=== PATIENT | female | born 1985 | race Caucasian/White ===

== ENCOUNTER 2019-06-01 17:46 | Inpatient (IN) | payer OTHER, SELFPAY ==
[2019-06-01] VITALS (15 sets, daily range): BP systolic 104–135; BP diastolic 58–91; PULSE 68–86; TEMP 36.9
--- NOTE | 2019-06-01 18:00 | LDADM ---
This patient, Lucila Menchaca, was admitted to Labor/Delivery/Recovery 103 on 06/01/19 at 17:46. Plans for labor, pain management and were discussed with patient. Patient/family oriented to hospital policies and general routines including ID bracelet, bed and alarms, visiting hours, pain management, procedures, bathroom and other care routines, personal items, smoking policy, room service/diet and guest tray routines, security routines, and visiting hours. Patient/Family are encouraged to report perceived risks to care and to ask questions if they do not understand what they are told or what they should do. See OBIX for further documentation.
--- NOTE | 2019-06-01 18:17 | WPDANESEPP ---
Anes - Eval Pre Procedure Procedure: Labor epidural Date/Time: 06/01/19 18:17 Surgeon: Giuliano Preop Diagnosis: Abdominal pain with contractions Pre Op Diagnosis: IOL Patient Data Age: 33 Gender: F Height: Weight: Allergies Allergy/AdvReac Type Severity Reaction Status Date / Time Penicillins Allergy Unknown Verified 04/01/19 13:55 Sulfa (Sulfonamide Allergy Unknown Verified 04/01/19 13:56 Antibiotics) Home Medications Medication Instructions Recorded Confirmed Type PNV cmb#95-ferrous fumarate-FA 1 tablet PO DAILY 04/01/19 04/01/19 History [] aspirin [Aspirin Low Dose] 81 mg PO DAILY 04/01/19 04/01/19 History ferrous sulfate 325 mg PO DAILY 04/01/19 04/01/19 History Patient hx anesthesia problems: none Family hx anesthesia problems: none PMFSH Past Medical History Medical History (Updated 06/01/19 @ 18:19 by Jayden Richmond CRNA) Depression Overweight (BMI 25.0-29.9) Family History Family History Other Unknown family medical history Social History Social History Substance use: never Gender identity (if verbalized by the patient): Female Spiritual care concerns: No Exam Day of Procedure 06/01/19 18:17
[2019-06-01] MEDS: LACTATED RINGERS 1,000 ML 125 ML IV CONT (18:44)
[2019-06-01] MEDS: ceFAZolin 2 GM/D5W 50 ML 2 GM/50 ML BAG IVPB (18:44)
[2019-06-01 18:50] LABS: Basophils Percent Auto 0.3 % (0.2-1.2); Eosinophils Absolute Auto 0.3 K/mm3 (0-0.3); Hematocrit 35.9 % (37.0-47.0); Hemoglobin 11.3 g/dL (12.0-15.0); Immature Granulocyte Absolute 0.21 K/mm3 (0.00-0.031); Immature Granulocyte Percent A 1.6 % (0-0.5); Immature Platelet Fraction Pct 17.2 % (0.9-11.2); Lymphocytes Absolute Auto 1.84 K/mm3 (0.9-3.2); Lymphocytes Percent Auto 14.4 % (18.3-44.2); Mean Corpuscular HGB Conc 31.5 g/dl (32-36); Mean Corpuscular Hemoglobin 25.6 pg (26-34); Mean Corpuscular Volume 81.4 fl (80-100); Mean Platelet Volume 13.3 fl (7.4-10.4); Monocytes Absolute Auto 0.7 K/mm3 (0.1-0.6); Monocytes Percent Auto 5.6 % (2.6-8.5); Neutrophils Absolute Auto 9.7 K/mm3 (1.3-6.7); Neutrophils Percent Auto 76.1 % (45.5-73.1); Platelet Count Result 172 k/mm3 (150-375); Red Blood Count 4.41 M/mm3 (4.2-5.4); Red Cell Distribution Width 14.8 % (11.5-14.5); White Blood Count 12.8 K/mm3 (4.5-10.0)
[2019-06-01] MEDS: DINOPROSTONE 10 MG VAG INSERT VAGINAL (19:22)
[2019-06-01 19:39] LABS: HIV 1/2 Ab P24 Ag Result Negative (Negative)
[2019-06-02] VITALS (69 sets, daily range): BP systolic 90–148; BP diastolic 56–104; PULSE 68–173; RESP 17–18; TEMP 36.6–37.2; O2SAT 97–100; BMI 31.6
[2019-06-02] MEDS: LACTATED RINGERS 1,000 ML 125 ML IV CONT (02:59)
--- NOTE | 2019-06-02 04:54 | P.PCNOB_ITS ---
OB - Delivery Note Procedure Delivery date: 06/02/19 Induction method: per pitocin protocol and other Delivery monitor: external FHT and external uterine Route of delivery: Laceration description: Perineal - 1st Degree Specimen: No Estimated blood loss (mL): 100 Anesthesia type: Epidural Disposition: floor Narrative: DESCRIPTION OF PROCEDURE: Patient was admitted for induction of labor which was started with Cervidil. She had spontaneous rupture of membranes at approximately 3:15 a.m. approximately 1 hour later patient reported significant vaginal pressure and was then found to be completely dilated. With good maternal effort and after approximately 2 contractions head delivered over intact peritoneum. Shoulders and body delivered without complications. The female infant had spontaneous cry and was placed skin to skin. The umbilical cord was clamped and cut. A portion of the cord was then collected for cord gases and then cord blood was collected for typing. With Pitocin running and gentle traction on the cord, the placenta delivered without complications. Bimanual exam showed a firm fundus and good hemostasis was noted. The cervix, vagina, and perineum were examined and a first-degree perineal laceration was identified. Using 3 0 Vicryl a [id number] stitch was placed and good hemostasis was noted. The patient had a 1 centimeter skin tag arising from the left labia majora that she desired to be removed. Using 3 cc of 1 percent lidocaine without epinephrine, good anesthesia was obtained. The skin tag was cut at the base and a [id number] stitch using 3 0 Vicryl was placed for good hemostasis. Sponge, lap, needle, and instrument counts were correct at the end of the procedure. Baby and mother were left bonding skin to skin in the birthing suite. [place] Baby Date of : 06/02/19 Time of : 04:34 Weeks of gestation at delivery: 39 Infant gender: Female presentation: vertex position: Left Occiput Anterior Placenta delivery description: Expressed cord vessel description: 3 Vessels score one minute: 9 score five minutes: 9
[2019-06-02] MEDS: WITCH HAZEL 40 PADS 1 PAD TOPICAL (06:58)
[2019-06-02] MEDS: BENZOCAINE 20% AER SPR (*SP) 56 GM CAN 1 SPRAY TOPICAL (06:59)
[2019-06-02 07:16] LABS: Rapid Plasma Reagin Non-Reactive (NonReactive)
--- NOTE | 2019-06-02 11:20 | PC.NURSE ---
Mother called out for assist with latching. Reviewed feeding cues, frequencies, duration of feedings, feeding elimination flow sheet, and signs of adequate intake. Demonstrated stimulation techniques to wake for feeding. Assisted with infant to breast. Reviewed positioning/alignment in cross cradle, holding breast in U hold and guided asymmetrical latch on. Discussed rational for each. was able to latch correctly. nursed eagerly, with steady draws and frequent swallowing noted. Reviewed signs of a correct latch, effective nursing and suck swallow ratio. was able to maintain latch without discomfort to mother. Nipple care reviewed. Advised to stimulate to keep infant awake and nursing effectively for increased intake. Instructed mother to call out for RN assistance if she is unable to latch infant for feeding or she has discomfort with nursing. Instructed feeding should be initiated three hours from start of last feeding or if feeding cues are noted before. Mother voiced understanding of information shared.
[2019-06-02] MEDS: IBUPROFEN 600 MG TABLET PO (17:42)
[2019-06-02] MEDS: DOCUSATE SODIUM 100 MG CAPSULE PO (17:43)
[2019-06-03 05:44] LABS: Hematocrit 32.7 % (37.0-47.0); Hemoglobin 10.3 g/dL (12.0-15.0)
[2019-06-03 07:30] VITALS: BP 128/76; PULSE 79; RESP 16; TEMP 36.5; O2SAT 98
[2019-06-03] MEDS: IBUPROFEN 600 MG TABLET PO (08:53)
[2019-06-03] MEDS: TETANUS,DIPHTHERIA,AC PERTUSSIS ADULT 0.5 ML (ADACEL) IM (08:54)
[2019-06-03] MEDS: DOCUSATE SODIUM 100 MG CAPSULE PO (08:54)
[2019-06-03] MEDS: MULTIVIT/MIN/PREN/FOL AC/IRON TABLET 1 TAB PO (08:54)
--- NOTE | 2019-06-03 10:20 | PC.NURSE ---
Mother is able to independently latch infant with appropriate positioning/alignment. She denies any nipple discomfort, is feeding as required and waking to feed if needed. has had 9 effective feedings in the past 24 hours, and is currently meeting outcomes for weight, output, jaundice and feeding frequencies. Mother states she feels confident to continue effective at home. Reviewed transition to breast milk, signs of adequate intake, and engorgement/relief. Instructed to call ICP if intake/output less than required. Reviewed regular medications mother is taking. Information provided per Madalyn. Reviewed community resources on the [facility] website and in the Mom/Baby guide. Information on outpatient services provided. Mother has no further questions at this time.
--- NOTE | 2019-06-03 12:45 | PM.OBPNVD ---
OB - PN: Subj Subjective Date/time seen: 06/03/19 12:45 Lucila reports doing great today. Her pain is controlled. Her bleeding is light. She is tolerating regular diet w/o N/V. She is passing gas and voiding w/o difficulty. She is ambulating w/o symptoms of anemia. She is breast feeding. She would like to go home today. OB - PN: Obj Data Labs CBC & Chem 7: 06/03/19 05:05 Labs: Laboratory Results - last 24 hr 06/03/19 05:05 Hgb 10.3 L Hct 32.7 L OB - PN A/P Assessment and Plan (1) Vaginal delivery: Code(s): O80 - Encounter for full-term uncomplicated delivery Status: Acute Assessment and Plan: PPD #1 - meeting all milestones - Exam/vital/labs stable - Ok for patient to be discharged home today - Pelvic rest, ER return precautions reviewed - F/u in clinicin 4 weeks Time Spent With Patient Time: Total time spent is greater than 50% in coordination of care (as documented) at patient's floor/unit and/or counseling patient: Review of Systems Constitutional: Constitutional: Denies chills and Denies fatigue Cardiovascular: Cardiovascular: Denies rapid heart rate Respiratory: Respiratory: Denies cough and Denies dyspnea Gastrointestinal: Gastrointestinal: Denies abdominal pain, Denies nausea and Denies vomiting Genitourinary: Genitourinary: Denies pelvic pain Neurologic: Denies headache(s) Exam Const: General: comfortable, no acute distress, alert, awake and acute distress Other: ambulating within room Resp: Effort & Inspection: normal respiratory effort Auscultation: clear to auscultation bilaterally Cardio: Rate: regular rate GI: Auscultation: normal bowel sounds Other: mildly distended, soft, fundus firm Psych: Appearance: grossly normal Affect: normal affect Attitude: cooperative
--- NOTE | 2019-06-03 12:49 | PC.NURSE ---
Patient viewed the discharge video Mother & Baby Care, The First Two Weeks . Patient was given the opportunity and encouraged to ask questions. Patient verbalized understanding of information shared and has been given the mother/baby guide for home reference.
--- NOTE | 2019-06-03 17:37 | PC.NURSE ---
On 06/03/19, the student, [ Octavio Lopez], provided care and completed [facility] documentation on this patient. I have reviewed the student's documentation and agree with the findings.
[2019-06-04 11:21] VITALS: BP 130/76; PULSE 90; RESP 18; TEMP 36.6
--- NOTE | 2019-06-15 14:32 | PM.OBDSVD ---
DS: Diagnosis Admitting Diagnosis Admitting Diagnosis: Encounter for supervision of normal , unspecified, third trimester OB - DS: Summary OB Procedures : None OB Procedures Intrapartum: Spontaneous Vag Delivery OB Procedures: : None Peripartum Data Infant Delivery Method: Natural Vaginal Laceration description: Perineal - 1st Degree Episiotomy description: None complications: none [place] 1: Gender: Female Disposition of : home Status at Discharge Functional status at discharge: independent ambulation Overall status at discharge: patient is back to baseline Time Spent with Patient Time attestation: Total time spent providing and/or coordinating discharge services: Exam Narrative: Exam Narrative: Const General: comfortable, no acute distress, alert, awake and acute distress Other: ambulating within room Resp Effort & Inspection: normal respiratory effort Auscultation: clear to auscultation bilaterally Cardio Rate: regular rate GI Auscultation: normal bowel sounds Other: mildly distended, soft, fundus firm Psych Appearance: grossly normal Affect: normal affect Attitude: cooperative Discharge Plan Discharge Attending physician on discharge: Aurea Burnham Discharging Clinician: Aurea Burnham Anticipated Discharge Date/Time: 06/03/19 16:00 Patient Disposition: Home, Self-Care Activity: pelvic rest Diet: regular Discharge Instructions: Education: Mom and Baby Guide Given to: Mother Follow-Up: Call your delivering provider's office for an appointment to be seen in: 4 Weeks Mom and baby should come to the [facility] for the follow-up appointment. Appointment Date/Time: Tuesday, June 04, 2019 at 11:00 am What to expect at your follow-up visit: Blood Pressure Check Physical Assessment Call [phone] if you are unable to keep your appointment time. BREAST CARE: 1. Wear a snug supportive bra. 2. For engorgement discomfort: Breast Feeding: A. Apply warm moist washcloths B. Express milk as needed to relieve engorgement C. Wear loose clothing 3. For sore nipples: A. Identify correct latch-on B. Apply warm moist washcloths before and after nursing C. Air dry nipples after nursing D. May apply Lansinoh cream to nipples EPISIOTOMY/PERINEAL CARE: 1. Until bleeding stops, use your lawrence bottle after urinating 2. Change your pad frequently throughout the day 3. You may take sitz baths several times a day (fill your bathtub with warm water and soak for 20 minutes.) Do NOT bathe in the water 4. No tub baths until seen by your physician - You may shower ACTIVITY: 1. Rest as much as possible. 2. Do not exercise or lift anything heavier than your baby (such as laundry or other children.) 3. Avoid stairs or driving as much as possible. 4. Do not put anything into the vagina. No douching, tampons, or sexual activity until seen by physician. NOTIFY PHYSICIAN IF YOU HAVE ANY QUESTIONS OR IF ANY OF THE FOLLOWING SYMPTOMS OCCUR: 1. If your perineum becomes red, swollen, or more painful than what you have experienced in the hospital. 2. If your vaginal bleeding becomes foul smelling. 3. If your vaginal bleeding becomes more heavy than a period or if your bleeding changes from pink to bright red. However, you may pass an occasional walnut-sized clot once or twice for the first week . 4. If you experience a sharp, shooting pain in you calves. 5. If you discover a hard, reddened area on your breast or if you experience flu-like symptoms. DIET: 1. Eat regular, well-balanced meals. 2. Drink plenty of fluids daily. If , drink to thirst. Stand Alone Forms: General Discharge Information Follow-up/Referrals: Max Nobles MD [Physician] - 4 Weeks Discharge Medications: New Dermoplast (with menthol) 20-
== END 2019-06-03 14:21 | disposition home or self-care (01) | DRG 560 ==
LOC: ANHOB2 06-03 12:45 → ANHLDR 06-04 12:41 → ANHOB2 06-04 12:41
PROVIDERS: Admitting Provider Obstetrics & Gynecology; Visit Provider Obstetrics & Gynecology
DX: O99.344 Other mental disorders complicating childbirth (principal); Z37.0 Single live birth; Z3A.39 39 weeks gestation of pregnancy; F32.9 Major depressive disorder, single episode, unspecified; O70.0 First degree perineal laceration during delivery; Z23 Encounter for immunization
CPT/HCPCS: 36415; 85014; 85018; 85025; 85055; 86592; 86703; 86850; 86900; 86901; 90471; 90686; 90715; A9270; G0008; G0432; J0690; J2590; J2795; J3010; J7120